=== PATIENT | male | born 1945 | race Caucasian/White ===

== ENCOUNTER 2016-12-13 12:02 | Day surgery (SDC) | payer MEDICARE, OTHER ==
[2016-12-09 15:53] LABS: HEMATOCRIT 44.1 % (40.0-51.0)
[2016-12-09 16:05] LABS: ASCORBIC ACID (UR NOT ORDER) NEG (NEG); BILIRUBIN, URINE NEGATIVE (NEG); KETONE, URINE NEGATIVE (NEG); LEUKOCYTE ESTERASE(NOT OR MOD (NEG); WBC (NOT ORDERED) (RFLEX) 45 (0-5)
--- NOTE | ~2016-12-13 | OP ---
Record Of Operation [facility] [address] [place] [place] [address] NAME: DONELL JERONIMO : 45 STATUS : [facility]#: [id number] AGE: 71 ADM/REG DATE : 12/13/16 MR#: [id number] REPORT SERV DATE: 12/13/16 DICTATED BY: REBEL PACKER III DATE: 12/13/16 REPORT STATUS : Draft TRANSCRIBED BY: MODL DATE: 12/13/16 DATE OF PROCEDURE: 12/13/2016 PREOPERATIVE DIAGNOSIS: Right ureteral calculus. POSTOPERATIVE DIAGNOSIS: Right ureteral calculus. PROCEDURE: Extracorporeal shock wave lithotripsy. SURGEON: Rebel Packer M.D. ANESTHESIA: MAC. DRAINS: None. BLOOD LOSS: None. INDICATION: Mr. Jeronimo is a 71-year-old white male, who had a stent placed elsewhere for an obstruction of right UVJ calculus. Options have been discussed with the patient and he wishes to proceed with ESWL. DESCRIPTION OF PROCEDURE: After consent was obtained, the patient was identified. He was taken to the lithotripsy suite and placed in the supine position. His stone was visualized using biplanar fluoroscopy. MAC anesthesia was administered and the unit was made ready and lithotripsy commenced. He did have a fair amount of ectopies. The treatment was gated, total of 3000 shocks at a power level of 7. The patient tolerated the procedure well and was taken to phase 2 recovery in stable condition. PH/MODL Rebel Packer III, M.D. / [id number] CC: Rebel Packer III, M.D.
[~2016-12-13 12:02] MED LIST: PROTONIX PO; T PO
== END 2016-12-13 17:27 | disposition home or self-care (01) ==
LOC: SDC 12:02
PROVIDERS: Urology
PROC: 0TF6XZZ Fragmentation in Right Ureter, External Approach (ICD-10-PCS; principal; 2016-12-13 14:00)
DX: N20.1 Calculus of ureter (principal); F41.9 Anxiety disorder, unspecified; Z88.0 Allergy status to penicillin; Z87.891 Personal history of nicotine dependence
CPT/HCPCS: 50590; 74000; 81001; 85014; 85018; 87086; 93005; J2405; J3010